=== PATIENT | female | born 1950 | race Caucasian/White ===

== ENCOUNTER 2021-08-09 08:00 | Day surgery (SDC) | payer OTHER ==
[~2021-08-09 08:00] MED LIST: AMLO5 PO; CAND4; CLON.1 PO; CLON.2; GLIM2 PO; GLYB1.5; LIRA0.6P; METO25ER; METO50ER; OLME20 PO; PIOG15; SIMV10; SIMV10 PO; VENL75ER PO; [UNRECOGNIZED DRUG - OTHER]
== END 2021-08-09 23:59 | disposition home or self-care (01) ==
LOC: WOUND 08:00
DX: L03.116 Cellulitis of left lower limb (principal); S81.802D Unspecified open wound, left lower leg, subsequent encounter; X58.XXXD Exposure to other specified factors, subsequent encounter; I87.2 Venous insufficiency (chronic) (peripheral); I73.9 Peripheral vascular disease, unspecified
CPT/HCPCS: G0463

== ENCOUNTER 2021-08-16 05:58 | Day surgery (SDC) | payer OTHER | END 2021-08-16 23:39 | disposition home or self-care (01) | LOC: WOUND 05:58 | DX: L03.116 Cellulitis of left lower limb (principal); S81.802D Unspecified open wound, left lower leg, subsequent encounter; X58.XXXD Exposure to other specified factors, subsequent encounter; I87.2 Venous insufficiency (chronic) (peripheral); I73.9 Peripheral vascular disease, unspecified ==

== ENCOUNTER 2021-08-19 09:26 | Day surgery (SDC) | payer OTHER | END 2021-08-19 23:07 | disposition home or self-care (01) | LOC: WOUND 09:26 | DX: S81.802D Unspecified open wound, left lower leg, subsequent encounter (principal); X58.XXXD Exposure to other specified factors, subsequent encounter; L03.119 Cellulitis of unspecified part of limb; I87.2 Venous insufficiency (chronic) (peripheral); I73.9 Peripheral vascular disease, unspecified ==

== ENCOUNTER 2021-08-23 05:22 | Day surgery (SDC) | payer OTHER | END 2021-08-23 23:27 | disposition home or self-care (01) | LOC: WOUND 05:22 | DX: S81.802D Unspecified open wound, left lower leg, subsequent encounter (principal); X58.XXXD Exposure to other specified factors, subsequent encounter; L03.119 Cellulitis of unspecified part of limb; I87.2 Venous insufficiency (chronic) (peripheral); I73.9 Peripheral vascular disease, unspecified | CPT/HCPCS: G0463 ==

== ENCOUNTER 2021-08-30 02:52 | Day surgery (SDC) | payer OTHER | END 2021-08-30 22:56 | disposition home or self-care (01) | LOC: WOUND 02:52 | DX: S81.802A Unspecified open wound, left lower leg, initial encounter (principal); L03.119 Cellulitis of unspecified part of limb; I87.2 Venous insufficiency (chronic) (peripheral); E11.51 Type 2 diabetes mellitus with diabetic peripheral angiopathy without gangrene; I10 Essential (primary) hypertension; X58.XXXA Exposure to other specified factors, initial encounter | CPT/HCPCS: G0463 ==

== ENCOUNTER 2021-09-16 11:55 | Day surgery (SDC) | payer OTHER | END 2021-09-16 23:14 | disposition home or self-care (01) | LOC: WOUND 11:55 | DX: S81.802D Unspecified open wound, left lower leg, subsequent encounter (principal); X58.XXXD Exposure to other specified factors, subsequent encounter; L03.119 Cellulitis of unspecified part of limb; I87.2 Venous insufficiency (chronic) (peripheral); I73.9 Peripheral vascular disease, unspecified | CPT/HCPCS: A9270; G0463 ==

== ENCOUNTER 2021-09-20 05:50 | Day surgery (SDC) | payer OTHER | END 2021-09-20 23:24 | disposition home or self-care (01) | LOC: WOUND 05:50 | DX: L03.116 Cellulitis of left lower limb (principal); S81.802D Unspecified open wound, left lower leg, subsequent encounter; X58.XXXD Exposure to other specified factors, subsequent encounter; I87.2 Venous insufficiency (chronic) (peripheral); I73.9 Peripheral vascular disease, unspecified | CPT/HCPCS: A9270; G0463 ==

== ENCOUNTER 2021-10-05 07:53 | Day surgery (SDC) | payer OTHER | END 2021-10-05 23:40 | disposition home or self-care (01) | LOC: WOUND 07:53 | DX: I70.248 Atherosclerosis of native arteries of left leg with ulceration of other part of lower leg (principal); L97.822 Non-pressure chronic ulcer of other part of left lower leg with fat layer exposed; L03.119 Cellulitis of unspecified part of limb; I87.2 Venous insufficiency (chronic) (peripheral); N18.30 Chronic kidney disease, stage 3 unspecified ==

== ENCOUNTER 2021-10-08 05:28 | Day surgery (SDC) | payer OTHER | END 2021-10-08 23:00 | disposition home or self-care (01) | LOC: WOUND 05:28 | DX: S81.802D Unspecified open wound, left lower leg, subsequent encounter (principal); X58.XXXD Exposure to other specified factors, subsequent encounter; L03.119 Cellulitis of unspecified part of limb; I87.2 Venous insufficiency (chronic) (peripheral); I73.9 Peripheral vascular disease, unspecified ==

== ENCOUNTER 2021-10-12 04:28 | Day surgery (SDC) | payer OTHER | END 2021-10-12 22:51 | disposition home or self-care (01) | LOC: WOUND 04:28 | DX: S81.802D Unspecified open wound, left lower leg, subsequent encounter (principal); X58.XXXD Exposure to other specified factors, subsequent encounter; L03.119 Cellulitis of unspecified part of limb; I87.2 Venous insufficiency (chronic) (peripheral); I73.9 Peripheral vascular disease, unspecified | CPT/HCPCS: A9270 ==

== ENCOUNTER 2021-10-19 02:57 | Day surgery (SDC) | payer OTHER | END 2021-10-19 23:13 | disposition home or self-care (01) | LOC: WOUND 02:57 | DX: L97.829 Non-pressure chronic ulcer of other part of left lower leg with unspecified severity (principal); S81.802D Unspecified open wound, left lower leg, subsequent encounter; X58.XXXD Exposure to other specified factors, subsequent encounter; L03.119 Cellulitis of unspecified part of limb; I73.9 Peripheral vascular disease, unspecified; I87.2 Venous insufficiency (chronic) (peripheral) | CPT/HCPCS: A9270 ==

== ENCOUNTER 2021-10-26 05:48 | Day surgery (SDC) | payer OTHER | END 2021-10-26 22:55 | disposition home or self-care (01) | LOC: WOUND 05:48 | DX: S81.802D Unspecified open wound, left lower leg, subsequent encounter (principal); X58.XXXD Exposure to other specified factors, subsequent encounter; L03.119 Cellulitis of unspecified part of limb; I87.2 Venous insufficiency (chronic) (peripheral); I73.9 Peripheral vascular disease, unspecified | CPT/HCPCS: A9270 ==

== ENCOUNTER 2021-10-29 01:46 | Day surgery (SDC) | payer OTHER | END 2021-10-29 23:25 | disposition home or self-care (01) | LOC: WOUND 01:46 | DX: S81.802D Unspecified open wound, left lower leg, subsequent encounter (principal); X58.XXXD Exposure to other specified factors, subsequent encounter; L03.119 Cellulitis of unspecified part of limb; I87.2 Venous insufficiency (chronic) (peripheral); I73.9 Peripheral vascular disease, unspecified | CPT/HCPCS: A9270 ==

== ENCOUNTER 2021-11-02 00:44 | Day surgery (SDC) | payer OTHER | END 2021-11-02 23:06 | disposition home or self-care (01) | LOC: WOUND 00:44 | DX: S81.802D Unspecified open wound, left lower leg, subsequent encounter (principal); X58.XXXD Exposure to other specified factors, subsequent encounter; L03.119 Cellulitis of unspecified part of limb; I73.9 Peripheral vascular disease, unspecified; I87.2 Venous insufficiency (chronic) (peripheral) | CPT/HCPCS: A9270 ==

== ENCOUNTER 2021-11-09 04:14 | Day surgery (SDC) | payer OTHER | END 2021-11-09 12:00 | disposition home or self-care (01) | LOC: WOUND 04:14 | DX: L97.829 Non-pressure chronic ulcer of other part of left lower leg with unspecified severity (principal); S81.802D Unspecified open wound, left lower leg, subsequent encounter; X58.XXXD Exposure to other specified factors, subsequent encounter; I87.2 Venous insufficiency (chronic) (peripheral); I73.9 Peripheral vascular disease, unspecified; L03.119 Cellulitis of unspecified part of limb | CPT/HCPCS: A9270 ==

== ENCOUNTER 2021-11-16 04:58 | Day surgery (SDC) | payer OTHER | END 2021-11-16 22:42 | disposition home or self-care (01) | LOC: WOUND 04:58 | DX: S81.802D Unspecified open wound, left lower leg, subsequent encounter (principal); X58.XXXD Exposure to other specified factors, subsequent encounter; L03.119 Cellulitis of unspecified part of limb; I87.2 Venous insufficiency (chronic) (peripheral); I73.9 Peripheral vascular disease, unspecified ==

== ENCOUNTER 2021-11-23 02:15 | Day surgery (SDC) | payer OTHER | END 2021-11-23 23:16 | disposition home or self-care (01) | LOC: WOUND 02:15 | DX: S81.802D Unspecified open wound, left lower leg, subsequent encounter (principal); X58.XXXD Exposure to other specified factors, subsequent encounter; L03.119 Cellulitis of unspecified part of limb; I73.9 Peripheral vascular disease, unspecified; I87.2 Venous insufficiency (chronic) (peripheral) | CPT/HCPCS: A9270 ==

== ENCOUNTER 2021-11-26 07:34 | Day surgery (SDC) | payer OTHER | END 2021-11-26 23:58 | disposition home or self-care (01) | LOC: WOUND 07:34 | DX: S81.802D Unspecified open wound, left lower leg, subsequent encounter (principal); X58.XXXD Exposure to other specified factors, subsequent encounter; I87.2 Venous insufficiency (chronic) (peripheral) | CPT/HCPCS: A9270 ==

== ENCOUNTER 2021-11-30 04:03 | Day surgery (SDC) | payer OTHER | END 2021-11-30 23:08 | disposition home or self-care (01) | LOC: WOUND 04:03 | DX: L97.829 Non-pressure chronic ulcer of other part of left lower leg with unspecified severity (principal); L03.90 Cellulitis, unspecified; I87.2 Venous insufficiency (chronic) (peripheral); I73.9 Peripheral vascular disease, unspecified | CPT/HCPCS: A9270 ==

== ENCOUNTER 2021-12-03 06:05 | Day surgery (SDC) | payer OTHER | END 2021-12-03 23:44 | disposition home or self-care (01) | LOC: WOUND 06:05 | DX: S81.802D Unspecified open wound, left lower leg, subsequent encounter (principal); L03.119 Cellulitis of unspecified part of limb; I87.2 Venous insufficiency (chronic) (peripheral); I73.9 Peripheral vascular disease, unspecified | CPT/HCPCS: A9270 ==

== ENCOUNTER 2021-12-07 05:43 | Day surgery (SDC) | payer OTHER | END 2021-12-07 22:44 | disposition home or self-care (01) | LOC: WOUND 05:43 | DX: L97.828 Non-pressure chronic ulcer of other part of left lower leg with other specified severity (principal); L03.119 Cellulitis of unspecified part of limb; I87.2 Venous insufficiency (chronic) (peripheral); I73.9 Peripheral vascular disease, unspecified ==

== ENCOUNTER 2021-12-10 05:04 | Day surgery (SDC) | payer OTHER | END 2021-12-10 12:00 | disposition home or self-care (01) | LOC: WOUND 05:04 | DX: L03.114 Cellulitis of left upper limb (principal); M71.122 Other infective bursitis, left elbow; I10 Essential (primary) hypertension ==

== ENCOUNTER 2021-12-16 02:18 | Day surgery (SDC) | payer OTHER | END 2021-12-19 03:38 | disposition home or self-care (01) | LOC: WOUND 02:18 | DX: S81.802A Unspecified open wound, left lower leg, initial encounter (principal); L03.119 Cellulitis of unspecified part of limb; I87.2 Venous insufficiency (chronic) (peripheral); I73.9 Peripheral vascular disease, unspecified ==

== ENCOUNTER 2021-12-21 00:41 | Day surgery (SDC) | payer OTHER | END 2021-12-21 01:13 | disposition home or self-care (01) | LOC: WOUND 00:41 | DX: E11.622 Type 2 diabetes mellitus with other skin ulcer (principal); L97.822 Non-pressure chronic ulcer of other part of left lower leg with fat layer exposed; E11.51 Type 2 diabetes mellitus with diabetic peripheral angiopathy without gangrene; I87.2 Venous insufficiency (chronic) (peripheral); L03.90 Cellulitis, unspecified | CPT/HCPCS: A9270 ==

== ENCOUNTER 2021-12-24 00:46 | Day surgery (SDC) | payer OTHER | END 2021-12-24 23:43 | disposition home or self-care (01) | LOC: WOUND 00:46 | DX: S81.802D Unspecified open wound, left lower leg, subsequent encounter (principal); L03.119 Cellulitis of unspecified part of limb; I87.2 Venous insufficiency (chronic) (peripheral); I73.9 Peripheral vascular disease, unspecified ==

== ENCOUNTER 2021-12-28 05:11 | Day surgery (SDC) | payer OTHER | END 2021-12-28 22:55 | disposition home or self-care (01) | LOC: WOUND 05:11 | DX: S81.802D Unspecified open wound, left lower leg, subsequent encounter (principal); I87.2 Venous insufficiency (chronic) (peripheral); L03.116 Cellulitis of left lower limb; L29.9 Pruritus, unspecified; E11.622 Type 2 diabetes mellitus with other skin ulcer; L97.829 Non-pressure chronic ulcer of other part of left lower leg with unspecified severity; E11.51 Type 2 diabetes mellitus with diabetic peripheral angiopathy without gangrene | CPT/HCPCS: A9270 ==

== ENCOUNTER 2021-12-31 02:15 | Day surgery (SDC) | payer OTHER | END 2021-12-31 12:00 | disposition home or self-care (01) | LOC: WOUND 02:15 | DX: S81.802A Unspecified open wound, left lower leg, initial encounter (principal); L03.119 Cellulitis of unspecified part of limb; I87.2 Venous insufficiency (chronic) (peripheral); I73.9 Peripheral vascular disease, unspecified; X58.XXXA Exposure to other specified factors, initial encounter ==

== ENCOUNTER 2022-01-05 00:11 | Day surgery (SDC) | payer OTHER | END 2022-01-05 23:26 | disposition home or self-care (01) | LOC: WOUND 00:11 | DX: L97.829 Non-pressure chronic ulcer of other part of left lower leg with unspecified severity (principal); L03.119 Cellulitis of unspecified part of limb; I87.2 Venous insufficiency (chronic) (peripheral); I73.9 Peripheral vascular disease, unspecified | CPT/HCPCS: A9270 ==

== ENCOUNTER 2022-01-07 02:51 | Day surgery (SDC) | payer OTHER | END 2022-01-07 23:17 | disposition home or self-care (01) | LOC: WOUND 02:51 | DX: S81.802A Unspecified open wound, left lower leg, initial encounter (principal); L03.119 Cellulitis of unspecified part of limb; I87.2 Venous insufficiency (chronic) (peripheral); I73.9 Peripheral vascular disease, unspecified | CPT/HCPCS: A9270 ==

== ENCOUNTER 2022-01-11 03:51 | Day surgery (SDC) | payer OTHER | END 2022-01-11 22:57 | disposition home or self-care (01) | LOC: WOUND 03:51 | DX: S81.802A Unspecified open wound, left lower leg, initial encounter (principal); I87.2 Venous insufficiency (chronic) (peripheral); X58.XXXA Exposure to other specified factors, initial encounter | CPT/HCPCS: A9270 ==

== ENCOUNTER 2022-01-14 02:31 | Day surgery (SDC) | payer OTHER | END 2022-01-14 12:00 | disposition home or self-care (01) | LOC: WOUND 02:31 | DX: S81.802A Unspecified open wound, left lower leg, initial encounter (principal); L03.119 Cellulitis of unspecified part of limb; I87.2 Venous insufficiency (chronic) (peripheral); I73.9 Peripheral vascular disease, unspecified | CPT/HCPCS: G0463 ==

== ENCOUNTER 2022-01-18 00:30 | Day surgery (SDC) | payer OTHER | END 2022-01-18 23:03 | disposition home or self-care (01) | LOC: WOUND 00:30 | DX: L97.829 Non-pressure chronic ulcer of other part of left lower leg with unspecified severity (principal); I87.2 Venous insufficiency (chronic) (peripheral); L03.116 Cellulitis of left lower limb | CPT/HCPCS: G0463 ==

== ENCOUNTER 2022-01-25 05:54 | Day surgery (SDC) | payer OTHER | END 2022-01-25 23:59 | disposition home or self-care (01) | LOC: WOUND 05:54 | DX: I87.2 Venous insufficiency (chronic) (peripheral) (principal); Z87.2 Personal history of diseases of the skin and subcutaneous tissue | CPT/HCPCS: G0463 ==

== ENCOUNTER 2022-05-18 01:10 | Day surgery (SDC) | payer OTHER | END 2022-05-18 22:48 | disposition home or self-care (01) | LOC: WOUND 01:10 | DX: I87.312 Chronic venous hypertension (idiopathic) with ulcer of left lower extremity (principal); L97.822 Non-pressure chronic ulcer of other part of left lower leg with fat layer exposed; I87.2 Venous insufficiency (chronic) (peripheral); I89.0 Lymphedema, not elsewhere classified; E11.9 Type 2 diabetes mellitus without complications; I10 Essential (primary) hypertension | CPT/HCPCS: A9270; G0463 ==

== ENCOUNTER 2022-05-20 09:19 | Day surgery (SDC) | payer OTHER | END 2022-05-20 23:13 | disposition home or self-care (01) | LOC: WOUND 09:19 | DX: I87.312 Chronic venous hypertension (idiopathic) with ulcer of left lower extremity (principal); L97.822 Non-pressure chronic ulcer of other part of left lower leg with fat layer exposed; I87.2 Venous insufficiency (chronic) (peripheral); I89.0 Lymphedema, not elsewhere classified ==

== ENCOUNTER 2022-05-25 08:00 | Day surgery (SDC) | payer OTHER | END 2022-05-25 23:59 | disposition home or self-care (01) | LOC: WOUND 08:00 | DX: I87.312 Chronic venous hypertension (idiopathic) with ulcer of left lower extremity (principal); I89.0 Lymphedema, not elsewhere classified; L97.822 Non-pressure chronic ulcer of other part of left lower leg with fat layer exposed; I87.2 Venous insufficiency (chronic) (peripheral); I10 Essential (primary) hypertension; E11.9 Type 2 diabetes mellitus without complications | CPT/HCPCS: A9270 ==

== ENCOUNTER 2022-05-27 01:02 | Day surgery (SDC) | payer OTHER | END 2022-05-27 23:16 | disposition home or self-care (01) | LOC: WOUND 01:02 | DX: I87.312 Chronic venous hypertension (idiopathic) with ulcer of left lower extremity (principal); L97.822 Non-pressure chronic ulcer of other part of left lower leg with fat layer exposed; I87.2 Venous insufficiency (chronic) (peripheral); I89.0 Lymphedema, not elsewhere classified ==

== ENCOUNTER 2022-06-01 03:40 | Day surgery (SDC) | payer OTHER | END 2022-06-01 23:58 | LOC: WOUND 03:40 | DX: I87.312 Chronic venous hypertension (idiopathic) with ulcer of left lower extremity (principal); L97.822 Non-pressure chronic ulcer of other part of left lower leg with fat layer exposed; I89.0 Lymphedema, not elsewhere classified; L87.2 Elastosis perforans serpiginosa ==

== ENCOUNTER 2022-06-03 02:56 | Day surgery (SDC) | payer OTHER | END 2022-06-03 23:36 | disposition home or self-care (01) | LOC: WOUND 02:56 | DX: I87.312 Chronic venous hypertension (idiopathic) with ulcer of left lower extremity (principal); L97.822 Non-pressure chronic ulcer of other part of left lower leg with fat layer exposed; I87.2 Venous insufficiency (chronic) (peripheral); I89.0 Lymphedema, not elsewhere classified | CPT/HCPCS: A9270 ==

== ENCOUNTER 2022-06-15 01:11 | Day surgery (SDC) | payer OTHER | END 2022-06-15 23:39 | disposition home or self-care (01) | LOC: WOUND 01:11 | DX: I87.312 Chronic venous hypertension (idiopathic) with ulcer of left lower extremity (principal); I87.2 Venous insufficiency (chronic) (peripheral); I89.0 Lymphedema, not elsewhere classified; L30.9 Dermatitis, unspecified | CPT/HCPCS: A9270 ==

== ENCOUNTER 2022-06-17 01:10 | Day surgery (SDC) | payer OTHER | END 2022-06-17 23:16 | disposition home or self-care (01) | LOC: WOUND 01:10 | DX: I87.312 Chronic venous hypertension (idiopathic) with ulcer of left lower extremity (principal); L97.829 Non-pressure chronic ulcer of other part of left lower leg with unspecified severity; L30.9 Dermatitis, unspecified; I87.2 Venous insufficiency (chronic) (peripheral); I89.0 Lymphedema, not elsewhere classified | CPT/HCPCS: A9270 ==

== ENCOUNTER 2022-06-21 00:20 | Day surgery (SDC) | payer OTHER | END 2022-06-22 00:18 | disposition home or self-care (01) | LOC: WOUND 00:20 | DX: I87.312 Chronic venous hypertension (idiopathic) with ulcer of left lower extremity (principal); L97.929 Non-pressure chronic ulcer of unspecified part of left lower leg with unspecified severity; I87.2 Venous insufficiency (chronic) (peripheral); I89.0 Lymphedema, not elsewhere classified; L30.9 Dermatitis, unspecified; E11.9 Type 2 diabetes mellitus without complications; I10 Essential (primary) hypertension | CPT/HCPCS: A9270 ==

== ENCOUNTER 2022-06-24 02:55 | Day surgery (SDC) | payer OTHER | END 2022-06-24 23:31 | disposition home or self-care (01) | LOC: WOUND 02:55 | DX: I87.312 Chronic venous hypertension (idiopathic) with ulcer of left lower extremity (principal); L97.929 Non-pressure chronic ulcer of unspecified part of left lower leg with unspecified severity; I87.2 Venous insufficiency (chronic) (peripheral); I89.0 Lymphedema, not elsewhere classified; L30.9 Dermatitis, unspecified | CPT/HCPCS: A9270 ==

== ENCOUNTER 2022-06-28 00:38 | Day surgery (SDC) | payer OTHER | END 2022-06-28 23:59 | disposition home or self-care (01) | LOC: WOUND 00:38 | DX: I87.312 Chronic venous hypertension (idiopathic) with ulcer of left lower extremity (principal); I87.2 Venous insufficiency (chronic) (peripheral); I89.0 Lymphedema, not elsewhere classified; L30.9 Dermatitis, unspecified | CPT/HCPCS: A9270; G0463 ==

== ENCOUNTER → 2023-02-21 | Outpatient (CLI) | payer OTHER | END | disposition home or self-care (01) | LOC: PLD 14:08 → LAB SHORT 14:08 | DX: L82.1 Other seborrheic keratosis (principal) | CPT/HCPCS: 88305 ==

== ENCOUNTER 2025-11-17 23:00 | Day surgery (SDC) | payer OTHER | END 2025-11-17 23:01 | LOC: WOUND 23:00 | DX: E11.622 Type 2 diabetes mellitus with other skin ulcer (principal); L97.822 Non-pressure chronic ulcer of other part of left lower leg with fat layer exposed; L97.812 Non-pressure chronic ulcer of other part of right lower leg with fat layer exposed; I87.313 Chronic venous hypertension (idiopathic) with ulcer of bilateral lower extremity; I87.2 Venous insufficiency (chronic) (peripheral); E11.51 Type 2 diabetes mellitus with diabetic peripheral angiopathy without gangrene; I10 Essential (primary) hypertension; Z79.84 Long term (current) use of oral hypoglycemic drugs | CPT/HCPCS: G0463 ==